=== PATIENT | female | born 1950 | race Caucasian/White ===

== ENCOUNTER → 2018-01-21 08:12 | Outpatient (CLI) | payer MEDICARE, OTHER, SELFPAY ==
--- NOTE | 2018-01-21 | DI.US.S_ITS ---
PROCEDURE: US PERIPH VENOUS LOW EXTREM RT INDICATIONS: RIGHT KNEE PAIN TECHNIQUE: Real-time imaging, as well as color and pulse Doppler interrogation, were performed of the lower extremity deep veins from the inguinal ligament to the popliteal fossa. COMPARISON: None. FINDINGS: The deep veins are normally compressible, and free of intraluminal thrombus. Color and pulse Doppler demonstrate normal phasic intraluminal flow. There is normal augmentation response to distal compression maneuver. IMPRESSION: No evidence of deep vein thrombosis involving the right lower extremity. Dictated by: Fabiola Kaplan MD, PhD on 01/21/2018 at 10:30 Approved by: Fabiola Kaplan MD, PhD on 01/21/2018 at 10:31
== END ==
PROVIDERS: Family Provider Family Medicine; PCP Family Medicine; Visit Provider Family Medicine
DX: M25.561 Pain in right knee (principal)
CPT/HCPCS: 93971

== ENCOUNTER → 2018-02-13 10:02 | Outpatient (CLI) | payer MEDICARE, OTHER, SELFPAY ==
--- NOTE | 2018-02-13 10:03 | DI.CT.S_ITS ---
PROCEDURE: CT LE RT WO CON INDICATIONS: calcified bodies in region of popliteal fossae of right knee. Pain TECHNIQUE: Noncontrast 3 mm axial sections acquired through the bony pelvis. Additional 3 mm axial sections acquired through the symptomatic hip joint, with coronal and sagittal reformats. COMPARISON: [facility], CT, LOWER EXTREMITY W CONTRAST, 11/29/2008, 0:35. [facility], CR, HIP 2V RIGHT, 11/28/2008, 23:12. FINDINGS: Image quality: Diagnostic. Bones: There is no acute fracture, dislocation, or suspicious osseous lesion of the right knee. Mild degenerative changes of the knee are present. Small developing marginal osteophytes appear to be present. Soft tissues: There is no significant joint effusion. Multiple calcifications are seen along the medial aspect of the proximal tibia, extending into an unusually positioned Cornelius's cyst versus within the distal semimembranosus bursa. Please note that the ligaments, tendons, and collecting structures of the knee are not adequately evaluated with CT. There is no significant atrophy of the imaged muscles. No soft tissue masses or drainable fluid collections are evident. IMPRESSION: 1. Calcifications along the medial aspect of the proximal tibia are felt to be positioned within the distal semimembranosus bursa, probably related to prior tendon injury. An MRI would be helpful for better characterization, if indicated. 2. Mild degenerative changes of the knee without acute fracture. incongruity. Relation of fracture to cotyloid fossa: supratectal, juxtatectal, infratectal. Dictated by: Yo Rebolledo M.D. on 02/13/2018 at 11:33 Approved by: Yo Rebolledo M.D. on 02/13/2018 at 11:37
== END ==
PROVIDERS: Family Provider Family Medicine; PCP Family Medicine; Visit Provider Physician Assistant
DX: M25.561 Pain in right knee (principal)
CPT/HCPCS: 73700

== ENCOUNTER 2018-02-18 13:45 | Outpatient (RCR) | payer MEDICARE, OTHER, SELFPAY ==
--- NOTE | 2018-02-13 14:01 | PT.OIE ---
Current Diagnoses Pain in right knee (02/12/18) Provider Visit Care Team Role Provider Type Debbie Chavira MD Attending Provider Non-Staff Family Provider Primary Care Provider Specialty: Family Practice Address: [address] [place] [address], [id number] Email: Physical Therapy Initial Evaluation PT-OP-A Visit Information Start: 02/12/18 15:13 Freq: Status: Active Protocol: Document 02/12/18 16:08 EA (Rec: 02/12/18 16:31 EA [id number]) Out-Patient Physical Therapy Visit Information Visit Information Visit Type Initial Evaluation Visit Start Time 13:45 Visit Stop Time 14:30 Total Visit Minutes 35 Visit Number 1 Evaluation Information Evaluation Date 02/12/18 PT-OP-B Current Condition Start: 02/12/18 15:13 Freq: Status: Active Protocol: Document 02/12/18 16:08 EA (Rec: 02/12/18 16:31 EA [id number]) Current Condition History of Current Condition Onset Date Mid of December/2017 Current Complaints Localized acute posterior knee pain, R History of Current Condition Pt reports current condition started 2 days after doing yard work; states no recall any significant injury or pulled muscle. Pt seen her primary care at [facility] and ordered X-rays which reveals Calcium deposits to the back and lateral side of the right knee. Patient has been using anti-inflammatory ointment, pain meds, and ICE, and has been helping it temporarily. Prior Treatments and Tests X-rays, Sonogram Future Testing and Treatments Planned CT to left knee Treatment Goals Patient/Caregiver Goals Patient wants to eliminate pain and be back to previous level . Prior Functional Status Baseline Function- ADL's Independent Baseline Function- Mobility Independent Baseline Function- Gait no deviation Baseline Function- Work/School Retired Baseline Function- Recreation/Hobbies Backyard gardening, houseworks Baseline Function- Other Indep with no limitation base to her age Current Functional Impairments (Reported) Functional Limitations- ADL's Limited with activity that requires standing and walking Functional Limitations- Mobility/Gait Limited to a block Functional Limitations- Recreation/ Unable to perform yard works. Hobbies PT-OP-C Subjective Start: 02/12/18 15:13 Freq: Status: Active Protocol: Document 02/12/18 16:08 EA (Rec: 02/12/18 16:31 EA [id number]) OP-PT Subjective Patient Comments Patient Comments Patient reports wants to eliminate pain so she could perform daily tasks without limitation. Patient Reported Progress Improving Patient Questionnaires Lower Extremity Functional Scale LEFS Score 16 LEFS Impairment 60 to 79% Impaired (Score 17- 31) OP-PT Pain Assessment Location Right Posterior Lateral Knee Pain Location Details Right posterolateral knee Intensity 7 Description Acute Throbbing Frequency Frequent Pain Aggravating Factors Position Activity Standing Walking Pain Alleviating Factors Cold Medication Elevation Patient Stated Pain Goal 0 Home Pain Medication Use Pain Medications Used Yes Pain Behaviors Pain Behaviors Facial Grimacing Guarding Moaning PT-OP-D Balance Start: 02/12/18 15:13 Freq: Status: Active Protocol: Document 02/12/18 16:08 EA (Rec: 02/12/18 16:31 EA [id number]) OP-PT Balance Assessment Standing Balance Static Standing Balance Ability Normal Dynamic Standing Balance Ability Fair Balance Tests Single Limb Standing Single Limb- Right unable Single Limb- Left able Bernardo Fall Scale Copyright Permission Az MATTA, Az RM, Alyse SJ. Development of a scale to identify the fall- prone patient. Can J Aging 1989;8;366-7. Dayana Bernardo (2009). Preventing patient falls. (2nd ed). [place]: Carter. PT-OP-F Manual Assessment Start: 02/12/18 15:13 Freq: Status: Active Protocol: Document 02/12/18 16:54 EA (Rec: 02/12/18 16:56 EA [id number]) Manual Assessments Joint Mobility Assessment Joint Mobility Assessment Hypomobile and painful proximal tibiofibiolar PT-OP-G Mobility & Gait Start: 02/12/18 15:13 Freq: Status: Active Protocol: Document 02/12/18 16:54 EA (Rec: 02/12/18 16:56 EA [id number]) OP Gait Assessment Gait Gait Assistance Required: Independent Assistive Devices Assistive Device None Gait Deviations General Gait Pattern Antalgic Factors Limiting Gait Function Factors Limiting Gait Function Pain PT-OP-J Posture/Palpation/Skin Start: 02/12/18 15:13 Freq: Status: Active Protocol: Document 02/12/18 16:08 EA (Rec: 02/12/18 16:31 EA [id number]) Posture Evaluation Position Standing Evaluation View Posterior Knee Posture (L) Neutral (R) Neutral Palpation Assessment Location One Palpation Location Posterolateral knee: lateral hamstring tendon, prox Tib-Fib jnt Palpation Findings Tenderness PT-OP-K Range of Motion Start: 02/12/18 15:13 Freq: Status: Active Protocol: Document 02/12/18 16:08 EA (Rec: 02/12/18 16:31 EA [id number]) Knee Goniometric Range of Motion Knee Measured in Degrees Right Knee ROM WFL Yes Left Knee ROM WFL Yes PT-OP-L Special Tests Start: 02/12/18 15:13 Freq: Status: Active Protocol: Document 02/12/18 16:08 EA (Rec: 02/12/18 16:31 EA [id number]) Special Tests Knee Special Tests Varus- 0 Degrees Test Results Sensitive Varus- 25 Degrees Test Results - Vaz's Compression Test Results sensitive Armand's Test Test Results - PT-OP-M Strength Start: 02/12/18 15:13 Freq: Status: Active Protocol: Document 02/12/18 16:08 EA (Rec: 02/12/18 16:31 EA [id number]) Knee Strength Knee Manual Muscle Testing Right Flexion (S2) 4 Good Extension (L3) 5 Normal Left Flexion (S2) 5 Normal Extension (L3) 5 Normal Ankle/Foot Strength Ankle and Foot Manual Muscle Testing Right Dorsiflexion (L4) 5 Normal Plantarflexion (S1) 5 Normal Inversion 5 Normal Eversion (S1) 5 Normal PT-OP-Q Treatments Start: 02/12/18 15:13 Freq: Status: Active Protocol: Document 02/12/18 16:08 EA (Rec: 02/12/18 16:31 EA [id number]) Self-Care/Home Management Treatment Education Patient Education Joint Protection Pain Management Safety PT-OP-T Assessment and Plan Start: 02/12/18 15:13 Freq: Status: Active Protocol: Document 02/12/18 16:08 EA (Rec: 02/12/18 16:31 EA [id number]) Physical Therapy Assessment Rehab Potential Rehabilitation Potential Good Evaluation Complexity Number of Personal Factors/Comorbidities 1-2 Number of Body Systems Impaired 1-2 Clinical Presentation at Evaluation Stable Impairments Impairments Activity Tolerance Gait Pain Strength Goals Three Impairment Impaired gait Options Advisor Goal (LTG) Patient will exhibit normal gait pattern to enhance mobility. LTG Duration 4 wks Two Impairment Right knee pain rated 6/10 Options Advisor Goal (LTG) Patient will report right knee pain to PS 1/10 to enable patient perform activities without limitation LTG Duration 4 wks One Impairment Impaired standing and walking tolerance Chcf Goal (LTG) Patient will stand more than 10 mins and ambulate more than 3 blocks with no increased in symptoms LTG Duration 4 wks Assessment Summary Assessment Pleasant 67 y/o F patient diagnosed with right knee pain who presented today with moderate to severe pain with grade 3 tenderness to right posterolateral and medial hamstring tendon. Special tests to knee ligaments, cartilage, and specific muscle reveals negative. However, special tests to lateral collateral ligaments at full knee extension reveals sensitive. However, patient history did not correlates with this test as patient did not recall any injury or muscle strain a day prior to current condition. 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 Ocular inspection reveals no obvious swelling but with min increased in temp with palpation. For further care, patient may benefit with further medical diagnostic procedure. Due to pain, patient exhibits gait difficulty and decreased mobility tolerance. In my professional opinion, at this time patient would benefit from skilled PT to decrease pain and improve mobility. Physical Therapy Plan Frequency and Duration Frequency of Treatment 2x/Week Plan of Care Start Date 02/12/18 Plan of Care End Date 03/26/18 Therapeutic Interventions Therapeutic Interventions Gait Training Home Exercise Program Joint Mobilizations Manual Therapy Patient/Caregiver Education Self-Care/Home Management Soft Tissue Mobilization Taping Therapeutic Exercises Modalities Cold Pack/Ice Massage Electric Stimulation Ultrasound Other Referrals/Consults Referrals/Consults Recommended Further diagnostic procedure or medical assessment is required improve further care. Next Visit Focus/Plan Next Note Type Treatment Note
--- NOTE | 2018-02-18 15:13 | PT.OTN ---
Current Diagnoses Pain in right knee (02/18/18) Physical Therapy Treatment Note PT-OP-A Visit Information Start: 02/12/18 15:13 Freq: Status: Active Protocol: Document 02/12/18 16:08 EA (Rec: 02/12/18 16:31 EA [id number]) Out-Patient Physical Therapy Visit Information Visit Information Visit Type Initial Evaluation Visit Start Time 13:45 Visit Stop Time 14:30 Total Visit Minutes 35 Visit Number 1 Evaluation Information Evaluation Date 02/12/18 PT-OP-B Current Condition Start: 02/12/18 15:13 Freq: Status: Active Protocol: Document 02/12/18 16:08 EA (Rec: 02/12/18 16:31 EA [id number]) Current Condition History of Current Condition Onset Date Mid of December/2017 Current Complaints Localized acute posterior knee pain, R History of Current Condition Pt reports current condition started 2 days after doing yard work; states no recall any significant injury or pulled muscle. Pt seen her primary care at [facility] and ordered X-rays which reveals Calcium deposits to the back and lateral side of the right knee. Patient has been using anti-inflammatory ointment, pain meds, and ICE, and has been helping it temporarily. Prior Treatments and Tests X-rays, Sonogram Future Testing and Treatments Planned CT to left knee Treatment Goals Patient/Caregiver Goals Patient wants to eliminate pain and be back to previous level . Prior Functional Status Baseline Function- ADL's Independent Baseline Function- Mobility Independent Baseline Function- Gait no deviation Baseline Function- Work/School Retired Baseline Function- Recreation/Hobbies Backyard gardening, houseworks Baseline Function- Other Indep with no limitation base to her age Current Functional Impairments (Reported) Functional Limitations- ADL's Limited with activity that requires standing and walking Functional Limitations- Mobility/Gait Limited to a block Functional Limitations- Recreation/ Unable to perform yard works. Hobbies PT-OP-C Subjective Start: 02/12/18 15:13 Freq: Status: Active Protocol: Document 02/18/18 13:58 EA (Rec: 02/18/18 14:40 EA [id number]) OP-PT Subjective Patient Comments Patient Comments Pt reports pain is much improved after regular icing and rest. Patient Reported Progress Improving PT-OP-D Balance Start: 02/12/18 15:13 Freq: Status: Active Protocol: Document 02/12/18 16:08 EA (Rec: 02/12/18 16:31 EA [id number]) OP-PT Balance Assessment Standing Balance Static Standing Balance Ability Normal Dynamic Standing Balance Ability Fair Balance Tests Single Limb Standing Single Limb- Right unable Single Limb- Left able Bernardo Fall Scale Copyright Permission Az MATTA, Az RM, Alyse SJ. Development of a scale to identify the fall- prone patient. Can J Aging 1989;8;366-7. Dayana Bernardo (2009). Preventing patient falls. (2nd ed). [place]: Carter. PT-OP-F Manual Assessment Start: 02/12/18 15:13 Freq: Status: Active Protocol: Document 02/12/18 16:54 EA (Rec: 02/12/18 16:56 EA [id number]) Manual Assessments Joint Mobility Assessment Joint Mobility Assessment Hypomobile and painful proximal tibiofibiolar PT-OP-G Mobility & Gait Start: 02/12/18 15:13 Freq: Status: Active Protocol: Document 02/12/18 16:54 EA (Rec: 02/12/18 16:56 EA [id number]) OP Gait Assessment Gait Gait Assistance Required: Independent Assistive Devices Assistive Device None Gait Deviations General Gait Pattern Antalgic Factors Limiting Gait Function Factors Limiting Gait Function Pain PT-OP-J Posture/Palpation/Skin Start: 02/12/18 15:13 Freq: Status: Active Protocol: Document 02/12/18 16:08 EA (Rec: 02/12/18 16:31 EA [id number]) Posture Evaluation Position Standing Evaluation View Posterior Knee Posture (L) Neutral (R) Neutral Palpation Assessment Location One Palpation Location Posterolateral knee: lateral hamstring tendon, prox Tib-Fib jnt Palpation Findings Tenderness PT-OP-K Range of Motion Start: 02/12/18 15:13 Freq: Status: Active Protocol: Document 02/12/18 16:08 EA (Rec: 02/12/18 16:31 EA [id number]) Knee Goniometric Range of Motion Knee Measured in Degrees Right Knee ROM WFL Yes Left Knee ROM WFL Yes PT-OP-L Special Tests Start: 02/12/18 15:13 Freq: Status: Active Protocol: Document 02/12/18 16:08 EA (Rec: 02/12/18 16:31 EA [id number]) Special Tests Knee Special Tests Varus- 0 Degrees Test Results Sensitive Varus- 25 Degrees Test Results - Vaz's Compression Test Results sensitive Armand's Test Test Results - PT-OP-M Strength Start: 02/12/18 15:13 Freq: Status: Active Protocol: Document 02/12/18 16:08 EA (Rec: 02/12/18 16:31 EA [id number]) Knee Strength Knee Manual Muscle Testing Right Flexion (S2) 4 Good Extension (L3) 5 Normal Left Flexion (S2) 5 Normal Extension (L3) 5 Normal Ankle/Foot Strength Ankle and Foot Manual Muscle Testing Right Dorsiflexion (L4) 5 Normal Plantarflexion (S1) 5 Normal Inversion 5 Normal Eversion (S1) 5 Normal PT-OP-Q Treatments Start: 02/12/18 15:13 Freq: Status: Active Protocol: Document 02/18/18 13:58 EA (Rec: 02/18/18 14:40 EA [id number]) Cardio Equipment Recumbent Stepper (Sci-Fit) Resistance 5 Seat Position 13-10 Gym Equipment Shuttle Recovery Unilateral Squats Resistance 2-3 cords Shuttle Recovery Platform Stable Reps/Time x 12 x 2 sets Therapeutic Exercises Prone Exercises 2 Prone Exercise Name quads stretch 1 Prone Exercise Name knee flexion Resistance 2 lbs AW Reps/Minutes x 12 reps x 2 sets Sitting Exercises 2 Sitting Exercise Name FAQ Side right Resistance 2-4 lbs AW Reps/Minutes x 12 x 2sets 1 Sitting Exercise Name hip flexion Side right Resistance 2-4 lbs AW Reps/Minutes x 12 reps x 2 Manual Therapy Treatment Soft Tissue Mobilization 1 Body Location right hamstring Mobilization Type Myofascial Release Rolling Intensity/Depth Moderate Body Position Sidelying PT-OP-R Modalities Start: 02/12/18 15:13 Freq: Status: Active Protocol: Document 02/18/18 13:58 EA (Rec: 02/18/18 14:40 EA [id number]) Electric Stimulation Electric Stimulation Interferential Current (IFC) Body Location right hamstring Intensity 15 Combined With Heat/Cold Cold Pack Ultrasound Therapy Treatment Right Treatment Duration (minutes) 8 Patient Position Sidelying Frequency Setting (mHz) 1 Mode Setting Pulsed Duty Cycle 50% Intensity Setting (w/cm2) 1.2 Comments medial and lateral hamstring distal tendons PT-OP-T Assessment and Plan Start: 02/12/18 15:13 Freq: Status: Active Protocol: Document 02/18/18 13:58 EA (Rec: 02/18/18 14:40 EA [id number]) Physical Therapy Assessment Assessment Summary Assessment Tolerated treatment well Physical Therapy Plan Next Visit Focus/Plan Next Note Type Treatment Note Next Visit Plan Cont with current plan.
--- NOTE | 2018-02-26 10:45 | PT.OTN ---
Current Diagnoses Pain in right knee (02/18/18) Physical Therapy Treatment Note PT-OP-A Visit Information Start: 02/12/18 15:13 Freq: Status: Active Protocol: Document 02/26/18 10:41 EA (Rec: 02/26/18 10:45 EA [id number]) Out-Patient Physical Therapy Visit Information Visit Information Visit Type Cancellation Visit Note Patient arrived to scheduled time, however, refused to perform PT session due to increased in pain and wanted to see her doctor prior to continuing PT session. Patient arrived on foot with no antalgic gait and/ acute distress. PT-OP-B Current Condition Start: 02/12/18 15:13 Freq: Status: Active Protocol: Document 02/12/18 16:08 EA (Rec: 02/12/18 16:31 EA [id number]) Current Condition History of Current Condition Onset Date Mid of December/2017 Current Complaints Localized acute posterior knee pain, R History of Current Condition Pt reports current condition statrted 2 days after doing yard work; states no recall any significant injury or pulled muscle. Pt seen her primary care at [facility] and ordered X-rays which reveals Calcium deposits to the back and lateral side of the right knee. Patient has been using anti-inflammatory ointment, pain meds, and ICE, and has been helping it temporarily. Prior Treatments and Tests X-rays, Sonogram Future Testing and Treatments Planned CT to left knee Treatment Goals Patient/Caregiver Goals Patient wants to elimnate pain and be back to previous level . Prior Functional Status Baseline Function- ADL's Independent Baseline Function- Mobility Independent Baseline Function- Gait no deviation Baseline Function- Work/School Retired Baseline Function- Recreation/Hobbies Backyard gardening, houseworks Baseline Function- Other Indep with no limitation base to her age Current Functional Impairments (Reported) Functional Limitations- ADL's Limited with activity that requires standing and walking Functional Limitations- Mobility/Gait Limited to a block Functional Limitations- Recreation/ Unable to perform yard works. Hobbies PT-OP-C Subjective Start: 02/12/18 15:13 Freq: Status: Active Protocol: Document 02/18/18 13:58 EA (Rec: 02/18/18 14:40 EA [id number]) OP-PT Subjective Patient Comments Patient Comments Pt reports pain is much improved after regular icing and rest. Patient Reported Progress Improving PT-OP-D Balance Start: 02/12/18 15:13 Freq: Status: Active Protocol: Document 02/12/18 16:08 EA (Rec: 02/12/18 16:31 EA [id number]) OP-PT Balance Assessment Standing Balance Static Standing Balance Ability Normal Dynamic Standing Balance Ability Fair Balance Tests Single Limb Standing Single Limb- Right unable Single Limb- Left able Bernardo Fall Scale Copyright Permission Az JM, Az RM, Alyse SJ. Development of a scale to identify the fall- prone patient. Can J Aging 1989;8;366-7. Dayana Bernardo (2009). Preventing patient falls. (2nd ed). [place]: Carter. PT-OP-F Manual Assessment Start: 02/12/18 15:13 Freq: Status: Active Protocol: Document 02/12/18 16:54 EA (Rec: 02/12/18 16:56 EA [id number]) Manual Assessments Joint Mobility Assessment Joint Mobility Assessment Hypomobile and painful proximal tibiofibiolar PT-OP-G Mobility & Gait Start: 02/12/18 15:13 Freq: Status: Active Protocol: Document 02/12/18 16:54 EA (Rec: 02/12/18 16:56 EA [id number]) OP Gait Assessment Gait Gait Assistance Required: Independent Assistive Devices Assistive Device None Gait Deviations General Gait Pattern Antalgic Factors Limiting Gait Function Factors Limiting Gait Function Pain PT-OP-J Posture/Palpation/Skin Start: 02/12/18 15:13 Freq: Status: Active Protocol: Document 02/12/18 16:08 EA (Rec: 02/12/18 16:31 EA [id number]) Posture Evaluation Position Standing Evaluation View Posterior Knee Posture (L) Neutral (R) Neutral Palpation Assessment Location One Palpation Location Posterolateral knee: lateral hamstring tendon, prox Tib-Fib jnt Palpation Findings Tenderness PT-OP-K Range of Motion Start: 02/12/18 15:13 Freq: Status: Active Protocol: Document 02/12/18 16:08 EA (Rec: 02/12/18 16:31 EA [id number]) Knee Goniometric Range of Motion Knee Measured in Degrees Right Knee ROM WFL Yes Left Knee ROM WFL Yes PT-OP-L Special Tests Start: 02/12/18 15:13 Freq: Status: Active Protocol: Document 02/12/18 16:08 EA (Rec: 02/12/18 16:31 EA [id number]) Special Tests Knee Special Tests Varus- 0 Degrees Test Results Sensitive Varus- 25 Degrees Test Results - Vaz's Compression Test Results sensitive Armand's Test Test Results - PT-OP-M Strength Start: 02/12/18 15:13 Freq: Status: Active Protocol: Document 02/12/18 16:08 EA (Rec: 02/12/18 16:31 EA [id number]) Knee Strength Knee Manual Muscle Testing Right Flexion (S2) 4 Good Extension (L3) 5 Normal Left Flexion (S2) 5 Normal Extension (L3) 5 Normal Ankle/Foot Strength Ankle and Foot Manual Muscle Testing Right Dorsiflexion (L4) 5 Normal Plantarflexion (S1) 5 Normal Inversion 5 Normal Eversion (S1) 5 Normal PT-OP-Q Treatments Start: 02/12/18 15:13 Freq: Status: Active Protocol: Document 02/18/18 13:58 EA (Rec: 02/18/18 14:40 EA [id number]) Cardio Equipment Recumbent Stepper (Sci-Fit) Resistance 5 Seat Position 13-10 Gym Equipment Shuttle Recovery Unilateral Squats Resistance 2-3 cords Shuttle Recovery Platform Stable Reps/Time x 12 x 2 sets Therapeutic Exercises Prone Exercises 2 Prone Exercise Name quads stretch 1 Prone Exercise Name knee flexion Resistance 2 lbs AW Reps/Minutes x 12 reps x 2 sets Sitting Exercises 2 Sitting Exercise Name FAQ Side right Resistance 2-4 lbs AW Reps/Minutes x 12 x 2sets 1 Sitting Exercise Name hip flexion Side right Resistance 2-4 lbs AW Reps/Minutes x 12 reps x 2 Manual Therapy Treatment Soft Tissue Mobilization 1 Body Location right hamsrting Mobilization Type Myofascial Release Rolling Intensity/Depth Moderate Body Position Sidelying PT-OP-R Modalities Start: 02/12/18 15:13 Freq: Status: Active Protocol: Document 02/18/18 13:58 EA (Rec: 02/18/18 14:40 EA [id number]) Electric Stimulation Electric Stimulation Interferential Current (IFC) Body Location right hamstring Intensity 15 Combined With Heat/Cold Cold Pack Ultrasound Therapy Treatment Right Treatment Duration (minutes) 8 Patient Position Sidelying Frequency Setting (mHz) 1 Mode Setting Pulsed Duty Cycle 50% Intensity Setting (w/cm2) 1.2 Comments mefial and lateral hamstring distal tendons PT-OP-T Assessment and Plan Start: 02/12/18 15:13 Freq: Status: Active Protocol: Document 02/18/18 13:58 EA (Rec: 02/18/18 14:40 EA [id number]) Physical Therapy Assessment Assessment Summary Assessment Tolerated treatment well Physical Therapy Plan Next Visit Focus/Plan Next Note Type Treatment Note Next Visit Plan Cont with current plan.
--- NOTE | 2018-06-26 07:56 | PT.OPDS ---
Current Diagnoses Pain in right knee (02/18/18) Provider Visit Care Team Role Provider Type Debbie Chavira MD Attending Provider Non-Staff Family Provider Primary Care Provider Specialty: Family Practice Address: [address] [place] [address], [phone] Email: Visit Number Visit Number 1 Discharge Summary PT-OP-B Current Condition Start: 02/12/18 15:13 Freq: Status: Active Protocol: Document 02/12/18 16:08 EA (Rec: 02/12/18 16:31 EA [id number]) Current Condition History of Current Condition Onset Date Mid of December/2017 Current Complaints Localized acute posterior knee pain, R History of Current Condition Pt reports current condition statrted 2 days after doing yard work; states no recall any significant injury or pulled muscle. Pt seen her primary care at [facility] and ordered X-rays which reveals Calcium deposits to the back and lateral side of the right knee. Patient has been using anti-inflammatory ointment, pain meds, and ICE, and has been helping it temporarily. Prior Treatments and Tests X-rays, Sonogram Future Testing and Treatments Planned CT to left knee Treatment Goals Patient/Caregiver Goals Patient wants to elimnate pain and be back to previous level . Prior Functional Status Baseline Function- ADL's Independent Baseline Function- Mobility Independent Baseline Function- Gait no deviation Baseline Function- Work/School Retired Baseline Function- Recreation/Hobbies Backyard gardening, houseworks Baseline Function- Other Indep with no limitation base to her age Current Functional Impairments (Reported) Functional Limitations- ADL's Limited with activity that requires standing and walking Functional Limitations- Mobility/Gait Limited to a block Functional Limitations- Recreation/ Unable to perform yard works. Hobbies PT-OP-C Subjective Start: 02/12/18 15:13 Freq: Status: Active Protocol: Document 06/26/18 07:52 EA (Rec: 06/26/18 07:56 EA [id number]) OP-PT Subjective Patient Comments Patient Comments Patient is no longer attending appointment and never scheduled appointment after the last visit which patient cancelled due to reports of no progress. PT-OP-D Balance Start: 02/12/18 15:13 Freq: Status: Active Protocol: Document 02/12/18 16:08 EA (Rec: 02/12/18 16:31 EA [id number]) OP-PT Balance Assessment Standing Balance Static Standing Balance Ability Normal Dynamic Standing Balance Ability Fair Balance Tests Single Limb Standing Single Limb- Right unable Single Limb- Left able Bernardo Fall Scale Copyright Permission Az JM, Az RM, Alyse SJ. Development of a scale to identify the fall- prone patient. Can J Aging 1989;8;366-7. Dayana Bernardo (2009). Preventing patient falls. (2nd ed). [place]: Carter. PT-OP-F Manual Assessment Start: 02/12/18 15:13 Freq: Status: Active Protocol: Document 02/12/18 16:54 EA (Rec: 02/12/18 16:56 EA [id number]) Manual Assessments Joint Mobility Assessment Joint Mobility Assessment Hypomobile and painful proximal tibiofibiolar PT-OP-G Mobility & Gait Start: 02/12/18 15:13 Freq: Status: Active Protocol: Document 02/12/18 16:54 EA (Rec: 02/12/18 16:56 EA [id number]) OP Gait Assessment Gait Gait Assistance Required: Independent Assistive Devices Assistive Device None Gait Deviations General Gait Pattern Antalgic Factors Limiting Gait Function Factors Limiting Gait Function Pain PT-OP-J Posture/Palpation/Skin Start: 02/12/18 15:13 Freq: Status: Active Protocol: Document 02/12/18 16:08 EA (Rec: 02/12/18 16:31 EA [id number]) Posture Evaluation Position Standing Evaluation View Posterior Knee Posture (L) Neutral (R) Neutral Palpation Assessment Location One Palpation Location Posterolateral knee: lateral hamstring tendon, prox Tib-Fib jnt Palpation Findings Tenderness PT-OP-K Range of Motion Start: 02/12/18 15:13 Freq: Status: Active Protocol: Document 02/12/18 16:08 EA (Rec: 02/12/18 16:31 EA [id number]) Knee Goniometric Range of Motion Knee Measured in Degrees Right Knee ROM WFL Yes Left Knee ROM WFL Yes PT-OP-L Special Tests Start: 02/12/18 15:13 Freq: Status: Active Protocol: Document 02/12/18 16:08 EA (Rec: 02/12/18 16:31 EA [id number]) Special Tests Knee Special Tests Varus- 0 Degrees Test Results Sensitive Varus- 25 Degrees Test Results - Vaz's Compression Test Results sensitive Armand's Test Test Results - PT-OP-M Strength Start: 02/12/18 15:13 Freq: Status: Active Protocol: Document 02/12/18 16:08 EA (Rec: 02/12/18 16:31 EA [id number]) Knee Strength Knee Manual Muscle Testing Right Flexion (S2) 4 Good Extension (L3) 5 Normal Left Flexion (S2) 5 Normal Extension (L3) 5 Normal Ankle/Foot Strength Ankle and Foot Manual Muscle Testing Right Dorsiflexion (L4) 5 Normal Plantarflexion (S1) 5 Normal Inversion 5 Normal Eversion (S1) 5 Normal PT-OP-T Assessment and Plan Start: 02/12/18 15:13 Freq: Status: Active Protocol: Document 06/26/18 07:52 EA (Rec: 06/26/18 07:56 EA [id number]) Physical Therapy Assessment Assessment Summary Assessment Patient is discharge after cancelling all appointments on her last visit. Physical Therapy Plan Discharge Physical Therapy Discharge Reasons No Longer Attending PT
== END 2018-07-03 13:50 ==
LOC: PHYS 13:45
PROVIDERS: Family Provider Family Medicine; PCP Family Medicine; Visit Provider Family Medicine
DX: M25.561 Pain in right knee (principal)
CPT/HCPCS: 97032; 97035; 97110; 97140; 97161; 97535

== ENCOUNTER → 2018-04-08 14:08 | Outpatient (CLI) | payer MEDICARE, OTHER, SELFPAY ==
--- NOTE | 2018-04-08 | DI.MRI.S_ITS ---
PROCEDURE: MR KNEE RT WO CON INDICATIONS: CHRONIC PAIN OF RIGHT KNEE TECHNIQUE: Noncontrast sagittal PD fast spin echo and T2 fast spin echo with fat saturation, sagittal 3-D FLASH with fat saturation; coronal T1 spin echo and PD fast spin echo with fat saturation, and axial PD fast spin echo with fat saturation through the knee. COMPARISON: [facility] [place], CR, XR KNEE ARTHRITIC SERIES RT, 03/26/2018, 9:25. FINDINGS: Image quality: Excellent. Menisci: Lateral meniscus appears intact. Tear of the medial meniscal posterior horn and possibly the posterior root, for example image 23 series 11. There is partial extrusion of the medial meniscal body. Cruciate ligaments: The anterior and posterior cruciate ligaments appear intact. Medial structures: The medial collateral ligament appears intact. The posterior oblique ligament, semimembranosus tendon insertions, oblique popliteal ligament, and meniscocapsular junction appear intact. Visualized portions of the pes anserinus tendons appear normal. No abnormal bursal fluid. Lateral structures: The lateral collateral ligament, long and short heads of the biceps femoris tendon appear intact. The popliteus tendon appears normal; the popliteofibular ligament appears intact. The posterosuperior and anteroinferior popliteomeniscal fascicles appear intact. The arcuate and fabellofibular ligaments appear intact, on either side of the lateral inferior geniculate artery. Iliotibial band appears normal. Anterior structures: The quadriceps and patellar tendons appear intact. Patellar alignment is normal. No femoral trochlear dysplasia or ventral trochlear prominence. No edema in the infrapatellar fat pad. Bones and cartilage: No bone marrow contusions or fractures. Mild subchondral marrow edema involving the peripheral medial compartment to be reactive to medial meniscal pathology. Within the medial compartment, there is diffuse partial-thickness loss of the femoral and tibial articular cartilage. Within the lateral compartment, there is diffuse partial-thickness loss of the femoral cartilage and intrasubstance signal change and partial-thickness loss of the central weightbearing tibial cartilage. Within the patellofemoral compartment, there is diffuse partial-thickness loss surface fraying of the patellar articular cartilage. Joint space: Small-moderate joint effusion. There are multiple subcentimeter loose bodies, adjacent to the insertion of the semimembranosus tendon as seen radiographically. No Cornelius's cyst. IMPRESSION: Medial meniscal tear involving posterior horn and posterior root with partial extrusion. Small-moderate joint effusion, with multiple subcentimeter loose bodies seen adjacent to the semimembranosus tendon insertion. Tricompartmental degeneration as above. Dictated by: Abdon Don M.D. on 04/08/2018 at 16:38 Approved by: Abdon Don M.D. on 04/08/2018 at 16:49
== END ==
PROVIDERS: Family Provider Family Medicine; PCP Family Medicine; Visit Provider Orthopaedic Surgery
DX: S83.241A Other tear of medial meniscus, current injury, right knee, initial encounter (principal); M25.561 Pain in right knee; G89.29 Other chronic pain; M25.461 Effusion, right knee; M17.11 Unilateral primary osteoarthritis, right knee
CPT/HCPCS: 73721

== ENCOUNTER → 2018-05-01 07:54 | Outpatient (CLI) | payer MEDICARE, OTHER, SELFPAY ==
--- NOTE | 2018-05-01 | DI.MG.S_ITS ---
BILATERAL DIGITAL SCREENING MAMMOGRAM 3D/2D WITH CAD POST LUMPECTOMY: 05/01/2018 CLINICAL: Routine screening. Personal history of left breast cancer. Family history of breast cancer. Comparison is made to exams dated: 04/16/2016 mammogram, 10/04/2014 mammogram, and 06/30/2013 mammogram - [facility]. The tissue of both breasts is predominantly fatty. Current study was also evaluated with a Computer Aided Detection (CAD) system. There are benign post operative findings in the left breast. No significant masses, calcifications, or other findings are seen in either breast. There has been no significant interval change. IMPRESSION: There is no mammographic evidence of malignancy. A 1 year screening mammogram is recommended. This exam was interpreted at Station ID: [id number]. NOTE: For mammograms, a report in lay terms will be sent to the patient. Approximately 15% of breast malignancies will not be visualized mammographically. In the management of a palpable breast mass, a negative mammogram must not discourage biopsy of a clinically suspicious lesion. Electronically Signed By: Danika downs/marge:05/01/2018 08:41:11 letter sent: Normal Exam ACR BI-RADS Category 2: Benign Finding(s) 3342F
== END ==
PROVIDERS: Family Provider Family Medicine; PCP Family Medicine; Visit Provider Family Medicine
DX: Z12.31 Encounter for screening mammogram for malignant neoplasm of breast (principal); Z85.3 Personal history of malignant neoplasm of breast; Z80.3 Family history of malignant neoplasm of breast
CPT/HCPCS: 77063; 77067

== ENCOUNTER → 2018-11-21 08:53 | Outpatient (CLI) | payer MEDICARE, OTHER, SELFPAY ==
[2018-11-21 09:53] LABS: Alanine Aminotransferase 23 IU/L (9-52); Albumin 3.9 g/dL (3.5-5.0); Albumin Globulin Ratio 1.2 (1.0-2.8); Alkaline Phosphatase 53 U/L (38-126); Aspartate Aminotransferase 25 IU/L (14-36); Bilirubin Total 0.6 mg/dL (0.2-1.3); Blood Urea Nitrogen 18 mg/dL (7-17); Calcium 9.4 mg/dL (8.4-10.2); Carbon Dioxide 27 mmol/L (22-32); Chloride 104 mmol/L (98-107); Cholesterol 293 mg/dL (140-199); Estimated Glomerular Filt Rate > 60.0 mL/min (>60); Globulin 3.2 g/dL (1.7-4.1); Glucose 88 mg/dL (80-110); HDL Cholesterol 59 mg/dL (40-60); HEMOLYSIS 16 (0-50); LDL Cholesterol Calculated 214 mg/dL (<100); Sodium 137 mmol/L (137-145); Total Protein 7.1 g/dL (6.3-8.2); Triglycerides 101 mg/dL (35-150)
[2018-11-21 10:02] LABS: Vitamin D 25 Hydroxy (D3) 25.2 ng/mL (30.0-100.0)
[2018-11-25 15:08] LABS: Rubeola Measles IgG > 300.00 AU/mL (< 25.00)
== END ==
PROVIDERS: Family Provider Family Medicine; PCP Student in an Organized Health Care Education/Training Program; Visit Provider Student in an Organized Health Care Education/Training Program
DX: E55.9 Vitamin D deficiency, unspecified (principal); E66.9 Obesity, unspecified; Z79.899 Other long term (current) drug therapy; Z71.1 Person with feared health complaint in whom no diagnosis is made; E78.2 Mixed hyperlipidemia
CPT/HCPCS: 36415; 80053; 80061; 82306; 86765

== ENCOUNTER 2019-07-01 17:52 | Emergency (ER) | payer MEDICARE, OTHER, SELFPAY ==
[2019-07-01 17:55] VITALS: BP 127/73; PULSE 84; RESP 16; TEMP 36.1; O2SAT 97; BMI 28.8
--- NOTE | 2019-07-01 18:03 | DI.RAD.S_ITS ---
PROCEDURE: XR RIBS LT MIN 3V W CXR1V INDICATIONS: GLF and pain to L ribs TECHNIQUE: 2 views of the left ribs were acquired, along with a single view chest. COMPARISON: None. FINDINGS: Surgical changes and devices: Left axillary clips are seen. Bones and chest wall: A marker is placed upon the area of clinical concern. Within this region, no displaced rib fracture or other significant rib abnormality can be seen. No rib fractures are seen elsewhere. No suspicious bony lesions. Age-appropriate bony degenerative changes are seen. Overlying soft tissues appear unremarkable. Lungs and pleura: No pleural effusions or pneumothorax. Lungs appear clear. Mediastinum: Mediastinal contours appear normal. Heart size is normal. IMPRESSION: No displaced fractures are seen. No pneumothorax. Dictated by: Trey Westbrook M.D. on 07/01/2019 at 17:13 Approved by: Trey Westbrook M.D. on 07/01/2019 at 17:14
--- NOTE | 2019-07-01 18:27 | ED.FALL ---
HPI - Fall General Chief Complaint: Fall Stated Complaint: tripped over dog, lt hand and rib pain Time Seen by Provider: 07/01/19 18:09 Source: patient Mode of arrival: Ambulatory Limitations: no limitations History of Present Illness HPI Narrative: 69-year-old female here for evaluation of left-sided rib pain. States she tripped over her dog landing on her left side.Has a abrasion to her left wrist. See her for evaluation of her left-sided ribs. She was concerned that she had a collapsed lung or rib fracture. Related Data Previous Rx's Medication Instructions Recorded diclofenac sodium 1 % topical gel 4 gram TOP QID #100 gram MDD 09/17/18 16g/joint/day varenicline 0.5 mg (11)-1 mg (42) See Rx Instructions PO PER PKG DIR 09/17/18 tablets in a dose pack #53 each zaleplon 10 mg capsule 10 mg PO DAILY #14 cap 09/17/18 simvastatin 10 mg tablet 10 mg PO QPM #90 tab 05/11/19 diclofenac sodium 50 mg 50 mg PO BID PRN #30 tab 05/25/19 tablet,delayed release Allergies Allergy/AdvReac Type Severity Reaction Status Date / Time Sulfa (Sulfonamide Allergy Anaphylaxis Verified 09/17/18 13:02 Antibiotics) Review of Systems Constitutional Constitutional: Denies fever(s), Denies frequent falls and Denies headache(s) ENT Ears, Nose, Mouth, and Throat: Denies headache(s) and Denies disequilibrium Cardiovascular Cardiovascular: Reports chest pain (Left-sided ribs), Denies palpitations and Denies dyspnea Respiratory Respiratory: Denies cough and Denies dyspnea Gastrointestinal Gastrointestinal: Denies abdominal pain, Denies nausea and Denies vomiting Musculoskeletal Musculoskeletal: Denies myalgias and Denies arthralgias Integumentary/Breasts Skin/Breast: Denies rash Comments: Abrasion to left wrist Neurologic Neurologic: Denies confusion, Denies frequent falls, Denies headache(s), Denies paresthesias, Denies tremor(s) and Denies disequilibrium Psychiatric Psychiatric: Denies confusion Endocrine Endocrine: Denies palpitations Patient History Medical History Breast cancer (Chronic ~2001) Chicken pox (Resolved ~1957) Fibromyalgia (Chronic) Measles (Resolved ~1957) Mumps (Resolved ~1959) Recurrent sinusitis (Chronic ~1999) Seasonal allergies (Chronic ~1999) Surgical History (Updated 09/16/18 @ 21:34 by Vesna Brooks) Anesthesia (Resolved) History of knee surgery (Resolved ~03/2018) History of lumpectomy of left breast (Resolved ~2001) History of shoulder surgery (Resolved ~2004) Family History (Updated 09/16/18 @ 21:44 by Vesna Brooks) Father Heart disease Mother Cancer Brother Cancer Sister Breast cancer Sister Cancer Grandfather Hardening of the arteries of the heart Grandmother Alzheimer's disease Social History Smoking Status: Current every day smoker alcohol intake: current substance use type: marijuana Smoking Status: Current every day smoker Substance Use Type: does not use Exam Initial Vital Signs Initial Vital Signs: Vital Signs Temperature 97 F L 07/01/19 17:55 Pulse Rate 84 07/01/19 17:55 Respiratory Rate 16 07/01/19 17:55 Blood Pressure 127/73 07/01/19 17:55 Pulse Oximetry 97 07/01/19 17:55 Const General: cooperative, comfortable and well developed Orientation: alert, awake and oriented x3 HENMT Head: normal to inspection and normocephalic Chest Chest: No crepitus and tenderness (Left lower ribs mid axillary/anterior axillary line) Resp Effort & Inspection: normal respiratory effort Auscultation: clear to auscultation bilaterally Cardio Rate: regular rate Rhythm: regular rhythm Pulses: radial pulses present GI Inspection: non-distended Palpation: soft Skin Lesions: no lesions Rashes: no rashes Neuro General: alert, awake and oriented x3 Cognition: normal cognition Speech: speech normal Gait: normal gait Extrem General: normal to inspection and capillary refill normal Other: Full range of motion left shoulder, left elbow, left wrist Psych Appearance: grossly normal and well kempt Course Orders Ordered: ED Orders 07/01/19 18:03 XR ribs LT min 3V w CXR1V Stat Vital Signs Vital signs: Vital Signs - 8 hr 07/01/19 17:55 Temperature 97 F L Pulse Rate 84 Respiratory Rate 16 Blood Pressure 127/73 Pulse Oximetry 97 MDM - Fall Imaging Data Chest x-ray: Radiologist's Impression: [address] [place] [address] XRay Report Signed Patient: Neal Ng#: [id number] : 2Acct:[id number] Age/Sex: 69 / FDate of Service: 07/01/19 Loc: ED Accession Number: [id number] Procedure: XR ribs LT min 3V w CXR1V Ordering Provider: Trisha Durham D.O. PROCEDURE: XR RIBS LT MIN 3V W CXR1V INDICATIONS: GLF and pain to L ribs TECHNIQUE: 2 views of the left ribs were acquired, along with a single view chest. COMPARISON: None. FINDINGS: Surgical changes and devices: Left axillary clips are seen. Bones and chest wall: A marker is placed upon the area of clinical concern. Within this region, no displaced rib fracture or other significant rib abnormality can be seen. No rib fractures are seen elsewhere. No suspicious bony lesions. Age-appropriate bony degenerative changes are seen. Overlying soft tissues appear unremarkable. Lungs and pleura: No pleural effusions or pneumothorax. Lungs appear clear. Mediastinum: Mediastinal contours appear normal. Heart size is normal. IMPRESSION: No displaced fractures are seen. No pneumothorax. Dictated by: Trey Westbrook M.D. on 07/01/2019 at 17:13 Approved by: Trey Westbrook M.D. on 07/01/2019 at 17:14 [facility] Narrative Medical decision making narrative: Rib showed no fracture there's. Lungs are clear. Does have an abrasion to the left wrist needing no intervention here in the ER. No other injuries reported from the event per the patient. Hold on further workup. Patient was given return precautions and follow-up instructions. She expressed understanding and agreement with plan. Discharge Plan Departure Patient Disposition: Home Clinical Impression: Rib pain on left side Abrasion of hand, left Qualifiers: Encounter type: initial encounter Qualified Code(s): S60.512A - Abrasion of left hand, initial encounter Discharge Date/Time: 07/01/19 19:14 Instructions: DI for Rib Contusion Activity Restrictions/Additional Instructions: Tylenol and/or ibuprofen for any discomfort. Contact your primary provider for follow-up. Return to the emergency department for any new or worsening symptoms Prescriptions: No Action simvastatin 10 mg tablet 10 mg PO QPM Qty: 90 RF: 1 diclofenac sodium 50 mg tablet,delayed release (DR/EC) 50 mg PO BID PRN (Reason: pain) Qty: 30 RF: 5 zaleplon 10 mg capsule 10 mg PO DAILY Qty: 14 RF: 1 diclofenac sodium [Voltaren] 1 % gel 4 gram TOP QID MDD 16g/joint/day Qty: 100 RF: 3 Chantix Starting Month Box 0.5 mg (11)- 1 mg (42) tablets,dose pack See Rx Instructions PO PER PKG DIR Qty: 53 RF: 0 Referrals: Juni Reza MD [Primary Care Provider] -
[2019-07-01 19:13] VITALS: BP 125/75; PULSE 78; RESP 16; O2SAT 100
== END 2019-07-01 19:14 | disposition home or self-care (01) ==
PROVIDERS: Emergency Provider Emergency Medicine; Family Provider Student in an Organized Health Care Education/Training Program; PCP Student in an Organized Health Care Education/Training Program
DX: S60.812A Abrasion of left wrist, initial encounter (principal); S20.212A Contusion of left front wall of thorax, initial encounter; W01.0XXA Fall on same level from slipping, tripping and stumbling without subsequent striking against object, initial encounter
CPT/HCPCS: 71101; 99281; 99283

== ENCOUNTER → 2020-06-23 11:04 | Outpatient (CLI) | payer MEDICARE, OTHER, SELFPAY ==
[2020-06-23 12:41] LABS: Add Manual Diff / Slide Review NO; Basophils Absolute Auto 0 /uL (0-100); Basophils Percent Auto 0.4 % (0-2); Eosinophils Absolute Auto 200 /uL (0-450); Eosinophils Percent Auto 3.2 % (2-4); Hematocrit 46.4 % (36-46); Hemoglobin 15.7 g/dL (12.0-16.0); Lymphocytes Absolute Auto 2100 /uL (1100-4500); Lymphocytes Percent Auto 34.4 % (25-40); Mean Corpuscular HGB Conc 33.8 % (30-36); Mean Corpuscular Hemoglobin 32.6 PG (26-34); Mean Corpuscular Volume 96.4 fL (80-100); Monocytes Absolute Auto 500 /uL (0-900); Monocytes Percent Auto 8.9 % (3-14); Neutrophils Absolute Auto 3200 /uL (1500-7000); Neutrophils Percent Auto 53.1 % (50-75); Platelet Count 153 X10^3/uL (150-400); Red Blood Cell Count 4.81 X10^6/uL (4.0-5.2); Red Cell Distribution Width 14.3 % (11.6-14.8); White Blood Cell Count 6.1 X10^3/uL (4.5-11.0)
[2020-06-23 12:54] LABS: Blood Urea Nitrogen 13 mg/dL (7-17); Calcium 9.7 mg/dL (8.4-10.2); Carbon Dioxide 26 mmol/L (22-32); Chloride 105 mmol/L (98-107); Cholesterol 223 mg/dL (140-199); Estimated Glomerular Filt Rate > 60.0 mL/min (>60); Glucose 97 mg/dL (80-110); HDL Cholesterol 58 mg/dL (40-60); HEMOLYSIS < 15 (0-50); LDL Cholesterol Calculated 141 mg/dL (<100); Potassium 4.3 mmol/L (3.4-5.1); Sodium 135 mmol/L (137-145); Triglycerides 120 mg/dL (35-150)
[2020-06-23 13:22] LABS: Vitamin D 25 Hydroxy (D3) 30.4 ng/mL (30.0-100.0)
[2020-06-23 13:38] LABS: TSH w/ Reflex to FT4 1.25 uIU/mL (0.47-4.68)
[2020-06-23 13:41] LABS: Vitamin B12 657 pg/mL (239-931)
== END ==
PROVIDERS: Family Provider Student in an Organized Health Care Education/Training Program; PCP Student in an Organized Health Care Education/Training Program; Referring Provider Student in an Organized Health Care Education/Training Program; Visit Provider Student in an Organized Health Care Education/Training Program
DX: E55.9 Vitamin D deficiency, unspecified (principal); E78.5 Hyperlipidemia, unspecified; R45.89 Other symptoms and signs involving emotional state
CPT/HCPCS: 36415; 80048; 80061; 82306; 82607; 84443; 85025

== ENCOUNTER → 2021-04-04 11:15 | Outpatient (CLI) | payer MEDICARE, OTHER, SELFPAY ==
--- NOTE | 2021-04-04 11:15 | DI.MG.S_ITS ---
BILATERAL DIGITAL SCREENING MAMMOGRAM 3D/2D WITH CAD: 04/04/2021 CLINICAL: Routine screening. Personal history of left breast cancer. Comparison is made to exams dated: 05/01/2018 mammogram - [facility], 04/16/2016 mammogram, 10/04/2014 mammogram, and 06/30/2013 mammogram - [facility]. There are scattered fibroglandular elements in both breasts. Current study was also evaluated with a Computer Aided Detection (CAD) system. There are benign calcifications in both breasts. There also are benign post operative findings in the left breast. No significant masses, calcifications, or other findings are seen in either breast. There has been no significant interval change. IMPRESSION: BENIGN There is no mammographic evidence of malignancy. A 1 year screening mammogram is recommended. This exam was interpreted at Station ID: [id number]. NOTE: For mammograms, a report in lay terms will be sent to the patient. Approximately 15% of breast malignancies will not be visualized mammographically. In the management of a palpable breast mass, a negative mammogram must not discourage biopsy of a clinically suspicious lesion. Electronically Signed By: Daljit prescott/marge:04/04/2021 11:47:06 letter sent: Normal Exam ACR BI-RADS Category 2: Benign Finding(s) 3342F
== END ==
PROVIDERS: PCP Student in an Organized Health Care Education/Training Program; Referring Provider Student in an Organized Health Care Education/Training Program; Visit Provider Student in an Organized Health Care Education/Training Program
DX: Z12.31 Encounter for screening mammogram for malignant neoplasm of breast (principal); Z85.3 Personal history of malignant neoplasm of breast
CPT/HCPCS: 77063; 77067